=== PATIENT | female | born 1985 | race Caucasian/White ===

== ENCOUNTER 2017-04-17 11:08 | Emergency (ER) | payer OTHER ==
[~2017-04-17] VITALS: Ht 162.6 cm; Wt 83.2 kg
[~2017-04-17 11:08] MED LIST: DOCU-30 PO; IBUP-1222 PO; OXYC-302 PO
[2017-04-17 12:49] LABS: BLOOD UREA NITROGEN 10 mg/dL (7-18)
[2017-04-17] MEDS ORDERED: SODIUM CHLORIDE FLUSH 10ML SYR IVF ONE (13:00)
[2017-04-17] MEDS ORDERED: OMNIPAQUE 350 MG/ML, 100ML BOTTLE ONE (13:58)
[2017-04-17 14:34] VITALS: BP 116/84
== END 2017-04-17 15:04 | disposition home or self-care (01) ==
LOC: ED 11:37
DX: M62.838 Other muscle spasm (principal)
CPT/HCPCS: 36415; 70450; 70498; 80048; 82040; 85025; 93005; 99285; Q9967